=== PATIENT | female | born 2000 | race Caucasian/White ===

== ENCOUNTER 2021-11-28 03:14 | Emergency (ER) | payer OTHER ==
[2021-11-28 03:25] VITALS: BP 118/83; PULSE 93; TEMP 98.2; BMI 29.2
[2021-11-28] MEDS ORDERED: ACETAMINOPHEN 500 MG TABLET (FP) PO ONE (03:56)
[2021-11-28] MEDS ORDERED: ACETAMINOPHEN 325 MG TABLET (FP) ONE (03:59)
== END 2021-11-28 04:47 | disposition home or self-care (01) ==
LOC: JER 03:14
PROC: 0H98XZZ Drainage of Buttock Skin, External Approach (ICD-10-PCS; principal; 2021-11-28)
DX: L05.91 Pilonidal cyst without abscess (principal)
CPT/HCPCS: 99283-25

== ENCOUNTER 2023-10-27 00:20 | Emergency (ER) | payer OTHER ==
[2023-10-27 00:25] VITALS: BP 120/81; PULSE 113; RESP 18; BMI 31.1
[2023-10-27] MEDS ORDERED: ACETAMINOPHEN 500 MG TABLET (FP) ONE (01:35)
[2023-10-27] MEDS: SODIUM CHLORIDE FOR INHALATION 3 ML VIAL.NEB IH ONE (01:42)
[2023-10-27] MEDS: ACETAMINOPHEN 500 MG TABLET (FP) PO ONE (01:42)
[2023-10-27 01:58] VITALS: TEMP 99.6
[2023-10-27 02:11] LABS: THROAT:GRP A STREP NOT DETECTED (NOTDETECTED)
== END 2023-10-27 02:35 | disposition home or self-care (01) ==
LOC: JER 00:20
DX: U07.1 COVID-19 (principal); R05.9 Cough, unspecified; J02.9 Acute pharyngitis, unspecified; H93.8X3 Other specified disorders of ear, bilateral
CPT/HCPCS: 0241U-QW; 87651; 99283-25

== ENCOUNTER 2024-02-23 11:43 | Emergency (ER) | payer SELFPAY ==
[2024-02-23 12:36] VITALS: BMI 29.2
[2024-02-23] MEDS ORDERED: ACETAMINOPHEN INJECTION 100 ML ONE (13:29)
[2024-02-23] MEDS ORDERED: ONDANSETRON 4 MG/2 ML VIAL ONE (13:29)
[2024-02-23] MEDS ORDERED: FAMOTIDINE 20 MG/50 ML IVPB 20 MG/50 ML MG IVPB ONE ×2 (13:29→13:33)
[2024-02-23] MEDS: ACETAMINOPHEN 1000 MG/100 ML BAG IVPB ONE (13:43)
[2024-02-23] MEDS: SODIUM CHLORIDE 1,000 ML IV ONE (13:43)
[2024-02-23] MEDS: FAMOTIDINE 20 MG/50 ML IVPB 20 MG/50 ML MG IVPB ONE (13:44)
[2024-02-23] MEDS: ONDANSETRON 4 MG/2 ML VIAL IVPUSH ONE (13:44)
[2024-02-23 13:50] LABS: EOS % 2.3 % (0-4.5); HEMATOCRIT 39.2 % (32.4-45.2); HEMOGLOBIN 13.3 GM/dL (10.7-15.3); MCH 27.9 pg (25.7-33.7); MCHC 33.9 g/dl (32.0-36.0); MEAN CELL VOLUME 82.3 fl (80-96); MEAN PLT VOLUME 7.4 fl (7.5-11.1); MONO % 5.4 % (3.8-10.2); NEUT % 52.3 % (42.8-82.8); PLATELET COUNT 429 10^3/uL (134-434); RBC 4.77 M/mm3 (3.60-5.2); RDW 13.6 % (11.6-15.6)
[2024-02-23 14:05] LABS: ALBUMIN 4.1 g/dl (3.4-5.0); BLOOD UREA NITROGEN 14.1 mg/dL (7-18); CALCIUM 9.5 mg/dL (8.5-10.1)
[2024-02-23 14:09] LABS: CREATININE 0.8 mg/dL (0.55-1.3)
[2024-02-23 14:10] LABS: BILIRUBIN,TOTAL 0.4 mg/dL (0.2-1); TOT PROT 8.2 g/dl (6.4-8.2)
[2024-02-23 14:30] LABS: EPI CELLS 20 /uL (0-25.1); HYALINE CASTS 1 /uL (0-3.1); PH,URINE 5.5 (5.0-8.0); URINE APPEARANCE CLEAR; URINE BACTERIA 35 /uL (0-1359); URINE BILIRUBIN NEGATIVE (NEGATIVE); URINE COLOR YELLOW; URINE GLUCOSE (UA) NEGATIVE (NEGATIVE); URINE KETONE NEGATIVE (NEGATIVE); URINE LEUK ESTERASE NEGATIVE (NEGATIVE); URINE NITRITE NEGATIVE (NEGATIVE); URINE PROTEIN NEGATIVE (NEGATIVE); URINE RBC 33 /uL (0-23.9); URINE UROBILINOGEN 0.2 mg/dL (0.2-1.0); URINE WBC 8 /uL (0-25.8)
[2024-02-23 14:31] LABS: HCG,QUALITATIVE URINE Negative
[2024-02-23 14:56] VITALS: BP 102/64; PULSE 76; RESP 20; TEMP 98.1
== END 2024-02-23 14:55 | disposition home or self-care (01) ==
LOC: JER 11:43
PROC: 3E033GC Introduction of Other Therapeutic Substance into Peripheral Vein, Percutaneous Approach (ICD-10-PCS; principal; 2024-02-23)
PROC: 3E033NZ Introduction of Analgesics, Hypnotics, Sedatives into Peripheral Vein, Percutaneous Approach (ICD-10-PCS; 2024-02-23)
DX: R19.7 Diarrhea, unspecified (principal); R11.0 Nausea; M54.50 Low back pain, unspecified
CPT/HCPCS: 36415; 80053; 81003; 83690; 84703; 85025; 99284-25; J0131